=== PATIENT | male | born 1970 | race Caucasian/White ===

== ENCOUNTER 2017-05-16 16:35 | Emergency (ER) | payer SELFPAY ==
[~2017-05-16] VITALS: Ht 180.3 cm; Wt 85.3 kg
[2017-05-16 16:38] VITALS: BP 168/88; PULSE 96; RESP 20; TEMP 97.8; O2SAT 100
[2017-05-16] MEDS ORDERED: HYDR-3533 PO (16:53)
--- NOTE | 2017-05-16 17:02 | PD ---
HPI Chief Complaint: Musculoskeletal Complaint Time Seen by Provider: 16:45 Travel History International Travel<30 days: No Contact w/Intl Traveler<30days: No Traveled to known affect area: No History of Present Illness HPI 47-year-old male is insistent the emergency room for evaluation of left anterior shoulder pain after injuring his shoulder earlier today. Patient has history of chronic rotator cuff injury for which he was scheduled for surgery 1 week ago. States his father had a stroke and he had to fly in from [place] to take care of him and thus cancelled his surgery. Reports while his father was standing to urinate earlier today, his knees gave out and he fell down grabbing the patient's left arm on his way down. Patient heard a pop and had immediate pain. He has taken Tylenol and Motrin without any relief in symptoms. Denies radiation of symptoms less he moves his arm a certain way. External rotation causes the most amount of pain. Patient states he has been prescribed Percocet but his prescription is in [place]. PFSH Past Medical History Diminished Hearing: No Tetanus Vaccination: Unknown Social History Alcohol Use: No Tobacco Use: No Allergies-Medications (Allergen,Severity, Reaction): Coded Allergies: No Known Allergies (Unverified , 05/16/17) Reported Meds & Prescriptions Reported Meds & Active Scripts Active Robaxin (Methocarbamol) 750 Mg Tab 750 Mg PO Q8HR Mobic (Meloxicam) 7.5 Mg Tab 7.5 Mg PO DAILY 10 Days Review of Systems Except as stated in HPI: all other systems reviewed are Neg Physical Exam Narrative GENERAL: Well-nourished, well-developed male in no acute distress. Afebrile. Ambulatory. SKIN: Focused skin assessment warm/dry. HEAD: Normocephalic. EYES: No scleral icterus. No injection or drainage. NECK: Supple, trachea midline. No JVD or lymphadenopathy. CARDIOVASCULAR: Regular rate and rhythm without murmurs, gallops, or rubs. RESPIRATORY: Breath sounds equal bilaterally. No accessory muscle use. MUSCULOSKELETAL: No cyanosis, or edema. Extreme tenderness to palpation of the left acromioclavicular joint. No humeral head tenderness. 2+ radial pulse. Radial, ulnar, and median nerves intact. Limited range of motion secondary to pain. Data Data Last Documented VS Vital Signs Date Time Temp Pulse Resp B/P Pulse Ox O2 Delivery O2 Flow Rate FiO2 05/16/17 16:38 97.8 96 20 168/88 100 Orders Ketorolac Inj (Toradol Inj) (05/16/17 17:15) [facility] Medical Decision Making Medical Screen Exam Complete: Yes Emergency Medical Condition: Yes Medical Record Reviewed: Yes Differential Diagnosis Sprain, fracture, dislocation Narrative Course 47-year-old male presents to the emergency room for evaluation of acute on chronic left shoulder pain. Patient was scheduled for rotator cuff surgery week ago but had to cancel because his father had a stroke. He is visiting from [place] to take care of his father. States his father was falling and grabbed onto his left shoulder causing it to pull and pop. Since then he has had excruciating pain. Left upper extremity is neurovascularly intact with 2+ radial pulse. Radial, ulnar, and median nerves intact. Extreme pain with range of motion. No indication for imaging at this time. Patient was instructed to follow up with his orthopedic surgeon. Discharged with prescriptions for Mobic and Robaxin and told to return for worsening symptoms. He understands and agrees to plan. Diagnosis Primary Impression: Sprain of left shoulder Qualified Code: S43.402A - Sprain of left shoulder, unspecified shoulder sprain type, initial encounter Referrals: Primary Care Physician Patient Instructions: General Instructions, Shoulder Sprain (ED) Additional Instructions: Rest and drink plenty of fluids. Take Lortab as directed, as needed for pain. Do not drink alcohol or drive while taking this medication. Apply ice to the affected area for 20 minutes at a time, as needed for pain and swelling. Follow-up with your orthopedic surgeon. Return to the emergency room for worsening symptoms. Med/Other Pt SpecificInfo: Prescription(s) given Scripts Methocarbamol (Robaxin)750 Mg [id number] Mg PO Q8HR #21 TAB Ref 0 Prov:Myron Ramirez MD 05/16/17 Meloxicam (Mobic)7.5 Mg Tab7.5 Mg PO DAILY 10 Days Ref 0 Prov:Myron Ramirez MD 05/16/17 Disposition: 01 DISCHARGE HOME Condition: Stable Fatuma Ortega May 16, 2017 17:02
[2017-05-16] MEDS ORDERED: KETOROLAC TROMETHAMINE 60 MG/2 ML (IM) VIAL IM ONE (17:15)
[2017-05-16] MEDS ORDERED: ROBA750T PO (17:17)
[2017-05-16] MEDS ORDERED: MOBI7.5T PO (17:17)
== END 2017-05-16 17:51 | disposition home or self-care (01) ==
LOC: PHEFT 16:35
DX: S43.402A Unspecified sprain of left shoulder joint, initial encounter (principal); X50.9XXA Other and unspecified overexertion or strenuous movements or postures, initial encounter; Y93.F9 Activity, other caregiving
CPT/HCPCS: 99284